=== PATIENT | female | born 1955 | race American Indian/Alaskan Native ===

== ENCOUNTER 2019-01-24 22:24 | Observation (INO) | payer BC ==
[2019-01-25 01:02] LABS: Basophils % (Auto) 0.3 % (0.0-1.8); Eosinophils # (Auto) 0.1 K/mm3 (0.0-0.4); Eosinophils % (Auto) 2.1 % (0.0-4.3); Hematocrit 36.2 % (30.3-42.9); Hemoglobin 12.3 gm/dl (10.1-14.3); Lymphocytes # (Auto) 2.6 K/mm3 (1.2-5.4); Lymphocytes % (Auto) 37.7 % (13.4-35.0); Mean Corpuscular HGB Conc 34 % (30-34); Mean Corpuscular Volume 82 fl (79-97); Monocytes # (Auto) 0.4 K/mm3 (0.0-0.8); Monocytes % (Auto) 5.6 % (0.0-7.3); Platelet Count 200 K/mm3 (140-440); Red Blood Count 4.42 M/mm3 (3.65-5.03); Red Cell Distribution Width 14.9 % (13.2-15.2)
[2019-01-25 01:26] LABS: Alanine Aminotransferase 23 units/L (7-56); BUN/Creatinine Ratio 14; Blood Urea Nitrogen 15 mg/dL (7-17); Calcium 8.9 mg/dL (8.4-10.2); Hemolysis Index 11
--- NOTE | 2019-01-25 06:28 | Emergency Department Report ---
ED Chest Pain HPI - General Chief Complaint: Chest Pain Stated Complaint: CHEST PAIN Time Seen by Provider: 01/25/19 06:23 Source: patient Mode of arrival: Ambulatory Limitations: No Limitations - History of Present Illness Initial Comments: 63-year-old female who states she has never been to the emergency department for evaluation of chest pain reports 2 hours of substernal indigestion-like pain which radiated to the left side of the neck and face and somewhat to the back. Pain has not recurred for several hours. She denied associated shortness of breath nausea or sweating or sense of impending doom. She states that she has had indigestion-like pain before. It is not exertional. She does not experience other reflux type symptoms. She stated that it did occur after eating last night. She has a history of hypertension and states she is co mpliant with her medicine. She does not smoke cigarettes now but was a former smoker decades ago. MD Complaint: chest pain -: Gradual, hour(s) Onset: during rest Pain Location: substernal Pain Radiation: other (above-described) Severity: moderate Severity scale (0 -10): 0 Quality: other (like "indigestion") Consistency: now resolved Improves With: nothing Worsens With: nothing re: denies: nausea, vomting, diaphoresis, dyspnea, sense of impending doom Other Symptoms: denies: cough, fever Treatments Prior to Arrival: none Aspirin use within the Past 7 Days: (0) No - Related Data Previous Rx's Medication Instructions Recorded Last Taken Type Ibuprofen [Motrin] 800 mg PO Q8H PRN #30 tablet 10/24/14 Unknown Rx Sulfamethoxazole/Trimethoprim 1 each PO BID #14 tablet 10/24/14 Unknown Rx [Bactrim Ds] traMADol [Ultram] 50 mg PO Q6HR PRN #14 tablet 10/24/14 Unknown Rx Allergies Allergy/AdvReac Type Severity Reaction Status Date / Time No Known Allergies Allergy Verified 10/24/14 00:15 Heart Score - HEART Score History: Moderately suspicious EKG: Normal Age: 45-65 Risk factors: 1-2 risk factors Troponin: < normal limit HEART Score: 3 - Critical Actions Critical Actions: 0-3 pts:0.9-1.7%risk of adverse cardiac event.Candidate for discharge ED Review of Systems ROS: Stated complaint: CHEST PAIN Other details as noted in HPI Constitutional: denies: chills, fever Eyes: denies: eye pain, eye discharge, vision change ENT: denies: ear pain, throat pain Respiratory: denies: cough, shortness of breath, wheezing Cardiovascular: chest pain. denies: palpitations Endocrine: no symptoms reported Gastrointestinal: denies: abdominal pain, nausea, diarrhea Genitourinary: denies: urgency, dysuria, discharge Musculoskeletal: denies: joint swelling, arthralgia Skin: denies: rash, lesions Neurological: denies: headache, weakness, paresthesias Psychiatric: denies: anxiety, depression Hematological/Lymphatic: denies: easy bleeding, easy bruising ED Past Medical Hx - Past Medical History Previous Medical History?: Yes Hx Hypertension: Yes - Surgical History Additional Surgical History: HYSTERECTOMY 81 - Social History Smoking Status: Former Smoker - Medications Home Medications: Home Medications Medication Instructions Recorded Confirmed Last Taken Type Ibuprofen [Motrin] 800 mg PO Q8H PRN #30 tablet 10/24/14 Unknown Rx Sulfamethoxazole/Trimethoprim 1 each PO BID #14 tablet 10/24/14 Unknown Rx [Bactrim Ds] traMADol [Ultram] 50 mg PO Q6HR PRN #14 tablet 10/24/14 Unknown Rx ED Physical Exam - General Limitations: No Limitations General appearance: alert, in no apparent distress - Head Head exam: Present: atraumatic, normocephalic - Eye Eye exam: Present: normal appearance. Absent: scleral icterus - ENT ENT exam: Present: mucous membranes moist - Neck Neck exam: Present: normal inspection - Respiratory Respiratory exam: Present: normal lung sounds bilaterally. Absent: respiratory distress - Cardiovascular Cardiovascular Exam: Present: regular rate, normal rhythm. Absent: systolic murmur, diastolic murmur, rubs, gallop - GI/Abdominal GI/Abdominal exam: Present: soft, normal bowel sounds. Absent: distended, tenderness, guarding, rebound - Extremities Exam Extremities exam: Present: normal inspection - Back Exam Back exam: Present: normal inspection - Neurological Exam Neurological exam: Present: alert, oriented X3, CN II-XII intact. Absent: motor sensory deficit - Psychiatric Psychiatric exam: Present: normal affect, normal mood - Skin Skin exam: Present: warm, dry, intact, normal color. Absent: rash ED Course Vital Signs 01/25/19 01/25/19 01/25/19 00:01 04:57 04:58 Temperature 98.6 F Pulse Rate 64 54 L Respiratory 18 25 H 28 H Rate Blood Pressure 173/90 167/86 O2 Sat by Pulse 99 100 Oximetry 01/25/19 01/25/19 01/25/19 05:01 05:31 05:52 Temperature Pulse Rate 55 L 55 L Respiratory 16 25 H 18 Rate Blood Pressure 151/88 151/79 O2 Sat by Pulse 100 100 97 Oximetry 01/25/19 01/25/19 01/25/19 06:00 06:30 07:00 Temperature Pulse Rate 53 L Respiratory 19 Rate Blood Pressure 143/85 159/117 164/111 O2 Sat by Pulse 100 100 100 Oximetry 01/25/19 01/25/19 01/25/19 07:31 08:00 08:31 Temperature Pulse Rate 54 L Respiratory 15 Rate Blood Pressure 152/82 166/88 158/88 O2 Sat by Pulse 99 100 99 Oximetry 01/25/19 08:35 Temperature Pulse Rate 57 L Respiratory Rate Blood Pressure 158/88 O2 Sat by Pulse Oximetry - Reevaluation(s) Reevaluation #1: Discussed with hospitalist. Patient remains asymptomatic and was admitted for further diagnostic workup. 01/25/19 08:55 ALISON score - Alison Score Age > 65: (0) No Aspirin use within the Past 7 Days: (0) No 3 or more CAD Risk Factors: (0) No 2 or more Angina events in past 24 hrs: (0) No Known CAD with more than 50% Stenosis: (0) No Elevated Cardiac Markers: (0) No ST Deviation Greater than 0.5mm: (0) No ALISON Score: 0 ED Medical Decision Making - Lab Data Result diagrams: 01/25/19 00:39 01/25/19 00:39 Laboratory Results - last 24 hr 01/25/19 01/25/19 00:39 00:39 WBC 7.0 RBC 4.42 Hgb 12.3 Hct 36.2 MCV 82 MCH 28 MCHC 34 RDW 14.9 Plt Count 200 Lymph % (Auto) 37.7 H Norton % (Auto) 5.6 Eos % (Auto) 2.1 Baso % (Auto) 0.3 Lymph # 2.6 Norton # 0.4 Eos # 0.1 Baso # 0.0 Seg Neutrophils % 54.3 Seg Neutrophils # 3.8 Sodium 145 Potassium 3.4 L Chloride 109.2 H Carbon Dioxide 25 Anion Gap 14 BUN 15 Creatinine 1.1 Estimated GFR > 60 BUN/Creatinine Ratio 14 Glucose 98 Calcium 8.9 Total Bilirubin 0.20 AST 23 ALT 23 Alkaline Phosphatase 125 Troponin T < 0.010 Total Protein 6.9 Albumin 4.0 Albumin/Globulin Ratio 1.4 Laboratory Results - last 24 hr 01/25/19 01/25/19 00:39 00:39 WBC 7.0 RBC 4.42 Hgb 12.3 Hct 36.2 MCV 82 MCH 28 MCHC 34 RDW 14.9 Plt Count 200 Lymph % (Auto) 37.7 H Norton % (Auto) 5.6 Eos % (Auto) 2.1 Baso % (Auto) 0.3 Lymph # 2.6 Norton # 0.4 Eos # 0.1 Baso # 0.0 Seg Neutrophils % 54.3 Seg Neutrophils # 3.8 Sodium 145 Potassium 3.4 L Chloride 109.2 H Carbon Dioxide 25 Anion Gap 14 BUN 15 Creatinine 1.1 Estimated GFR > 60 BUN/Creatinine Ratio 14 Glucose 98 Calcium 8.9 Total Bilirubin 0.20 AST 23 ALT 23 Alkaline Phosphatase 125 Troponin T < 0.010 Total Protein 6.9 Albumin 4.0 Albumin/Globulin Ratio 1.4 - EKG Data -: EKG Interpreted by [facility] EKG shows normal: sinus rhythm, axis, intervals, QRS complexes, ST-T waves Rate: normal - EKG Data Interpretation: normal EKG - Radiology Data Radiology results: report reviewed (no acute process) Critical care attestation.: If time is entered above; I have spent that time in minutes in the direct care of this critically ill patient, excluding procedure time. ED Disposition Clinical Impression: Essential hypertension Chest pain Qualifiers: Chest pain type: unspecified Qualified Code(s): R07.9 - Chest pain, unspecified Disposition: OP ADMIT IP TO THIS HOSP Is pt being admited?: Yes Does the pt Need Aspirin: Yes Condition: Stable Instructions: Chest Pain (ED), Hypertension (ED) Referrals: ALEYDA GARCIA MD [Primary Care Provider] - 3-5 Days Time of Disposition: 08:57
[2019-01-25] MEDS ORDERED: ASPIRIN PO ONE (06:59)
[2019-01-25] MEDS ORDERED: NITRO-BID 2% TP ONE (06:59)
[2019-01-25] MEDS ORDERED: PROTONIX PO ONE (07:00)
--- NOTE | 2019-01-25 07:02 | XRay Report ---
CHEST PA AND LATERAL VIEWS INDICATION: chest pain. COMPARISON: None. FINDINGS: Support devices: None. Heart: Within normal limits. Lungs/Pleura: No acute pulmonary or pleural findings. IMPRESSION: 1. No significant abnormality. Signer Name: Vincent Carvalho MD Signed: 01/25/2019 6:58 AM Workstation Name: [id number]
[2019-01-25] MEDS ORDERED: K-DUR PO ONE (08:56)
[2019-01-25] MEDS ORDERED: SODIUM CHLORIDE FLUSH SYRINGE 10 ML IV PRN ×2 (09:14→09:15)
[2019-01-25] MEDS ORDERED: ZOFRAN IV PRN (09:14)
[2019-01-25] MEDS ORDERED: TYLENOL PO PRN (09:14)
[2019-01-25] MEDS ORDERED: MORPHINE IV PRN (09:14)
[2019-01-25] MEDS ORDERED: NORVASC PO ONE (09:17)
[2019-01-25] MEDS ORDERED: NITROSTAT SL PRN (09:18)
--- NOTE | 2019-01-25 12:51 | History and Physical Report ---
History of Present Illness Date of examination: 01/25/19 Date of admission: 01/25/19 10:02 Chief complaint: Chest pain History of present illness: Patient is 63 yo with hypertension, hyperlipidemia. She presented with chest pain. Chest pain is left sided , 7 out of 10 in intensity radiated to left part of neck and back. Chest pain not related to exertion. No shortness of breath, no diaphoresis, no syncope. She was seen and examined in Emergency Department. Initial Troponin normal. She was given Aspirin in ED. Will admit to rule out acute coronary syndrome. Past History Past Medical History: hypertension, hyperlipidemia Past Surgical History: hysterectomy Social history: lives with family, full code, other (Former smoker) Family history: cancer Medications and Allergies Allergies Allergy/AdvReac Type Severity Reaction Status Date / Time No Known Allergies Allergy Verified 10/24/14 00:15 Home Medications Medication Instructions Recorded Confirmed Last Taken Type Lisinopril/Hydrochlorothiazide 10 mg PO QDAY 01/25/19 01/25/19 01/21/19 History [Zestoretic 10-12.5 mg Tablet] Famotidine [Pepcid] 20 mg PO BID #30 tablet 01/26/19 Unknown Rx Active Meds: Active Medications Acetaminophen (Tylenol) 650 mg PO Q4H PRN PRN Reason: Pain MILD(1-3)/Fever >100.5/MCWILLIAMS Amlodipine Besylate (Norvasc) 5 mg PO QDAY JEEVAN Aspirin (Ecotrin) 325 mg PO QDAY JEEVAN Morphine Sulfate (Morphine) 2 mg IV Q4H PRN PRN Reason: Pain, Moderate (4-6) Nitroglycerin (Nitro-Bid 2%) 0.5 inch TP Q6H JEEVAN; Protocol Nitroglycerin (Nitrostat) 0.4 mg SL .Q5MIN PRN PRN Reason: Chest Pain Ondansetron HCl (Zofran) 4 mg IV Q6H PRN PRN Reason: Nausea And Vomiting Sodium Chloride (Sodium Chloride Flush Syringe 10 Ml) 10 ml IV BID JEEVAN Sodium Chloride (Sodium Chloride Flush Syringe 10 Ml) 10 ml IV PRN PRN PRN Reason: LINE FLUSH Sodium Chloride (Sodium Chloride Flush Syringe 10 Ml) 10 ml IV PRN PRN PRN Reason: LINE FLUSH Review of Systems All systems: negative (no headache, no vomiting, no fever, no abdominal pain. All other systems reviewed and are negative) Exam - Physical Exam Narrative exam: Gen: Not in acute distress, lying in bed, HEENT: Normocephalic, atraumatic Neck: supple, no JVD Heart: S1 and S2 reg, no murmurs, rubs or gallop Lungs: Clear, no crackles, no wheeze Abd: soft, non tender, non distended, normal BS Ext: No edema, no clubbing, no cyanosis, Neuro: Awake,alert, oriented, normal speech, moves all extremities - Constitutional Vitals: Temp Pulse Resp BP Pulse Ox 98.6 F 57 L 15 158/88 99 01/25/19 00:01 01/25/19 08:35 01/25/19 08:31 01/25/19 08:35 01/25/19 08:31 Results - Labs CBC & Chem 7: 01/26/19 07:27 01/26/19 07:27 Labs: Abnormal lab results 01/25/19 01/25/19 Range/Units 00:39 00:39 Lymph % (Auto) 37.7 H (13.4-35.0) % Potassium 3.4 L (3.6-5.0) mmol/L Chloride 109.2 H (98-107) mmol/L Assessment and Plan Chest pain. Admit to Telemetry Troponin q 6h x 3 Initial Troponin negative Nitropaste Q 6h nitro sl Q 5 mins prn Will check d-dimer Hypertension Start Norvasc Resume Lisinopril Hyperlipidemia Full code status
[2019-01-25] MEDS: SODIUM CHLORIDE FLUSH SYRINGE 10 ML IV SCH ×2 (12:52→21:11)
[2019-01-25] MEDS: NITRO-BID 2% TP SCH ×2 (13:55→20:14)
[2019-01-25] MEDS: ZESTRIL PO SCH (13:57)
--- NOTE | 2019-01-25 17:47 | Cat Scan Report ---
CTA chest with contrast INDICATION : chest pain, elevated d-dimer. TECHNIQUE: Axial imaging performed through the chest, with contrast bolus timing set to maximize opa cification of the pulmonary arteries. 3-D reformatted images were obtained. All CT scans at this [facility] ation are performed using CT dose reduction for ALARA by means of automated exposure control. 100 mL of intravenous contrast administered. COMPARISON: None FINDINGS: Bolus: Contrast bolus timing is adequate. PTE: No filling defect is present to suggest PTE. Mediastinum: Heart and great vessels appear normal. No pathologic mediastinal adenopathy. Lungs: Lungs are clear. Upper abdomen: Limited imaging of the upper abdomen shows nothing acute. There are bilateral renal cysts which are simple in appearance as well as a punctate parenchymal calcification in the midpole t he left kidney and also in the lower pole the right kidney and a probable tiny hyperdense cyst in the upper pole the right kidney. Bones: Degenerative changes in the spine with nothing acute. IMPRESSION: Negative for PTE. Clear lungs. Signer Name: Faizan Winn MD Signed: 01/25/2019 5:43 PM Workstation Name: [id number]
[2019-01-26] MEDS: NITRO-BID 2% TP SCH ×2 (04:19→12:46)
[2019-01-26] MEDS ORDERED: LEXISCAN IV ONE (08:13)
[2019-01-26 08:19] LABS: Basophils % (Auto) 0.4 % (0.0-1.8); Eosinophils # (Auto) 0.1 K/mm3 (0.0-0.4); Eosinophils % (Auto) 2.6 % (0.0-4.3); Hematocrit 37.5 % (30.3-42.9); Hemoglobin 12.6 gm/dl (10.1-14.3); Lymphocytes # (Auto) 2.2 K/mm3 (1.2-5.4); Lymphocytes % (Auto) 42.4 % (13.4-35.0); Mean Corpuscular HGB Conc 34 % (30-34); Mean Corpuscular Volume 81 fl (79-97); Monocytes # (Auto) 0.3 K/mm3 (0.0-0.8); Monocytes % (Auto) 6.2 % (0.0-7.3); Platelet Count 205 K/mm3 (140-440); Red Blood Count 4.61 M/mm3 (3.65-5.03); Red Cell Distribution Width 14.9 % (13.2-15.2)
[2019-01-26 08:31] LABS: BUN/Creatinine Ratio 11; Blood Urea Nitrogen 10 mg/dL (7-17); Calcium 8.8 mg/dL (8.4-10.2); Hemolysis Index 5
[2019-01-26] MEDS ORDERED: NORVASC PO SCH (10:00)
[2019-01-26] MEDS ORDERED: ECOTRIN PO SCH (10:00)
[2019-01-26] MEDS: ZESTRIL PO SCH (12:44)
[2019-01-26] MEDS: SODIUM CHLORIDE FLUSH SYRINGE 10 ML IV SCH (12:45)
[2019-01-26 12:47] VITALS: BP 147/87
--- NOTE | 2019-01-26 14:00 | Discharge Summary ---
Providers - Providers Date of Admission: 01/25/19 10:02 Date of discharge: 01/26/19 Attending physician: RICHY CHAVARRIA 01/25/19 Consult to Cardiac Rehabilitation [CONS] Routine Reason For Exam: Phase I Primary care physician: [facility] MD DIMITRI Hospitalization Condition: Fair Hospital course: Patient is 63 yo with hypertension, She presented with chest pain. Chest pain is left sided , 7 out of 10 in intensity radiated to left part of neck and back. Chest pain not related to exertion. No shortness of breath, no diaphoresis, no syncope. She was seen and examined in Emergency Department. Initial Troponin normal. She was given Aspirin in ED, and admitted to rule out acute coronary syndrome. D-dimer was elevated so CTA chest was done was negative. Stress test done following day was normal. Chest pain determined to be non-cardiac due to gastro-esophageal reflux disease so she was discharged on Famotidine.. Disposition: TO HOME OR SELFCARE - Discharge Diagnoses (1) GERD (gastroesophageal reflux disease) Status: Acute (2) Chest pain Status: Acute Qualifiers: Chest pain type: unspecified (3) Essential hypertension Status: Chronic Core Measure Documentation - Palliative Care Palliative Care/ Comfort Measures: Not Applicable - Core Measures Any of the following diagnoses?: none Exam - Physical Exam Narrative exam: Gen: Not in acute distress, lying in bed, HEENT: Normocephalic, atraumatic Neck: supple, no JVD Heart: S1 and S2 reg, no murmurs, rubs or gallop Lungs: Clear, no crackles, no wheeze Abd: soft, non tender, non distended, normal BS Ext: No edema, no clubbing, no cyanosis, Neuro: Awake,alert, oriented, normal speech, moves all extremities - Constitutional Vitals: Temp Pulse Resp BP Pulse Ox 98.5 F 50 L 18 147/87 100 01/26/19 11:45 01/26/19 12:00 01/26/19 11:45 01/26/19 11:45 01/26/19 11:45 Plan Activity: no restrictions Diet: low fat, low cholesterol, low salt Additional Instructions: 1.Follow up with PCP in 1 week Follow up with: ALEYDA GARCIA MD [Primary Care Provider] - 3-5 Days Prescriptions: Famotidine [Pepcid] 20 mg PO BID #30 tablet
--- NOTE | 2019-01-30 00:37 | Treadmill Report ---
THALLIUM STRESS TEST LEFT VENTRICLE: Left ventricular chamber size is within normal spread. Perfusion study demonstrates homogeneous uptake of the tracer in all segments, no significant perfusion defects identified. Gated analysis demonstrates normal left ventricular systolic function, ejection fraction 75%. CONCLUSION: Normal myocardial perfusion study. JOB# [id number] CA/NTS
== END 2019-01-26 17:45 | disposition home or self-care (01) ==
LOC: ED 22:24 → 4A 01-25 10:02
PROVIDERS: ADMIT Internal Medicine; ATTEND Internal Medicine
DX: R07.89 Other chest pain (principal); I10 Essential (primary) hypertension; E78.5 Hyperlipidemia, unspecified; Z90.710 Acquired absence of both cervix and uterus; Z79.82 Long term (current) use of aspirin; Z79.899 Other long term (current) drug therapy; Z87.891 Personal history of nicotine dependence
CPT/HCPCS: 36415; 71046; 71275; 78452; 80048; 80053; 84484; 85025; 85379; 93005; 93010; 93017; 99284; A9502; G0378; J2785; Q9967